=== PATIENT | female | born 1950 | race Caucasian/White ===

== ENCOUNTER 2017-05-31 10:15 | Outpatient (CLI) | payer MEDICARE, BC ==
--- NOTE | 2017-06-03 12:30 | DEXA Report ---
DEXA SCAN: 05/31/2017 CLINICAL INDICATION: Postmenopausal. TECHNIQUE: Dual energy x-ray absorptiometry (DXA) was performed on a [employer] system. Regions measured are the AP spine, femoral neck, and, if needed, forearm. COMPARISON: None. In accordance with the International Society for Clinical Densitometry (ISCD) guidelines, data from previous exams may be reanalyzed using current recommendations and techniques. This is done to allow a more accurate basis for comparison with the current study. FINDINGS: The data for the lumbar spine is as follows: REGION BMD (g/cm/cm) T-SCORE Z-SCORE L1 0.951 -1.5 0.0 L2 1.168 -0.3 1.2 L3 1.433 1.9 3.4 L4 1.299 0.8 2.3 TOTAL 1.226 0.4 1.9 NOTE: All evaluable vertebrae are used for classification. The data for the hip is as follows: REGION BMD (g/cm/cm) T-SCORE Z-SCORE Neck 0.983 -0.4 1.1 TOTAL 1.041 0.3 1.5 NOTE: The femoral neck or total proximal femur, whichever is lowest, is used for classification. IMPRESSION: THE WHO CLASSIFICATION BASED ON THE INTERNATIONAL REFERENCE STANDARD IS NORMAL THE FRACTURE RISK IS NOT INCREASED. RECOMMENDATION: Patients with diagnosis of osteoporosis or osteopenia should have regular bone mineral density assessment. For those eligible for Medicare, routine testing is allowed once every 2 years. Testing frequency can be increased for patients who have rapidly progressing disease or for those who are receiving medical therapy to restore bone mass. COMMENT: World Health Organization (WHO) definitions for osteoporosis and osteopenia: NORMAL BMD: T-score at 1.0 or higher, fracture risk is low. OSTEOPENIA BMD: T-score between 1.0 and -2.5, fracture risk is increased. OSTEOPOROSIS BMD: T-score at 2.5 or lower, fracture risk high. National Osteoporosis Foundation recommends 1. Obtain adequate dietary calcium (at least 1200 mg per day) and vitamin D (400 -800 international units per day). 2. Participate, as appropriate, in regular weightbearing and muscle- strengthening exercise. 3. Avoid tobacco use and reduce alcohol and caffeine intake. 4. For more detailed information see the website at www.NOF.org. TD: 05/31/2017 16:54 JAME
== END 2017-05-31 10:16 | disposition home or self-care (01) ==
LOC: DI 10:15
PROVIDERS: ATTEND Registered Nurse
DX: Z78.0 Asymptomatic menopausal state (principal)
CPT/HCPCS: 77080

== ENCOUNTER 2017-05-31 10:16 | Outpatient (CLI) | payer MEDICARE, BC ==
--- NOTE | 2017-06-01 20:01 | Mammography Report ---
DATE OF SERVICE: 05/31/2017 DIGITAL SCREENING MAMMOGRAM: 05/31/2017 CLINICAL INDICATION: A 67-year-old with history of late childbearing for screening. COMPARISON: 10/2014, 12/2011, 09/2009, 08/2008. TECHNIQUE: Routine CC and MLO projections were obtained of the breasts. The breasts again demonstrate scattered fibroglandular densities bilaterally. Punctate, typically benign calcifications are present. Intramammary lymph node in the left upper outer quadrant is stable. No suspicious masses, clustered microcalcifications, or regions of architectural distortion are identified. IMPRESSION: Benign findings. RECOMMENDATIONS: Routine annual screening unless otherwise clinically indicated. BIRADS category 2 benign findings. STANDARD QUALIFYING STATEMENTS 1. This examination was reviewed with the aid of Computed-Aided Detection (CAD). 2. A negative or benign imaging report should not delay biopsy if clinically suspicious findings are present. Consider surgical consultation if warranted. More than 5% of cancers are not identified by imaging. 3. Dense breasts may obscure an underlying neoplasm. TD: 06/01/2017 21:01
== END 2017-05-31 10:17 | disposition home or self-care (01) ==
LOC: DI 10:16
PROVIDERS: ATTEND Registered Nurse
DX: Z12.31 Encounter for screening mammogram for malignant neoplasm of breast (principal)
CPT/HCPCS: 77067

== ENCOUNTER 2019-02-02 09:36 | Outpatient (CLI) | payer MEDICARE, BC ==
--- NOTE | 2019-02-02 10:19 | XRAY Report ---
Reason: SWELLING OF KNEE JOINT Procedure Date: 02/02/2019 Accession Number: [id number] / [id number] Procedure: XRS - Knee 3 View LT CPT Code: FULL RESULT: EXAM: LEFT KNEE RADIOGRAPHY EXAM DATE: 02/02/2019 09:52 AM. CLINICAL HISTORY: SWELLING OF KNEE JOINT. COMPARISON: None. TECHNIQUE: 3 views. FINDINGS: Bones: Osteopenia. Small exostosis arising from base of medial femoral condyle. No definite fracture or other bone lesion. Joints: Mild 3 compartment joint space narrowing with marginal lipping. No effusion. Soft Tissues: Generalized soft tissue swelling. IMPRESSION: 1. Soft tissue swelling. 2. Mild degenerative joint disease. RADIA
== END 2019-02-02 09:37 | disposition home or self-care (01) ==
LOC: DI.S 09:36
PROVIDERS: ATTEND Nurse Practitioner Family
DX: M17.12 Unilateral primary osteoarthritis, left knee (principal); R22.42 Localized swelling, mass and lump, left lower limb

== ENCOUNTER 2019-04-10 09:14 | Outpatient (CLI) | payer MEDICARE, BC ==
--- NOTE | 2019-04-10 14:08 | Mammography Report ---
Reason: ROUTINE MAMMO Procedure Date: 04/10/2019 Accession Number: [id number] / [id number] Procedure: MGS - Screening Mammo Dig Bilat CPT Code: Final Report FULL RESULT: EXAM: Screening Mammo Dig Bilat DATE: 04/10/2019 9:33 AM CLINICAL HISTORY: The patient is an asymptomatic 69-year-old female. Second degree family history of breast cancer. TECHNIQUE: (B) - Bilateral CC and MLO views were obtained. COMPARISON: 05/31/2017, 11/01/2014 and 12/18/2011 PARENCHYMAL PATTERN: (A) - The breasts demonstrate scattered fibroglandular densities bilaterally. FINDINGS: There are no suspicious masses, calcifications, or areas of distortion. IMPRESSION: Negative examination. BI-RADS category 1. RECOMMENDATION: (ANNUAL) - Recommend routine annual screening mammography. BI-RADS CATEGORY: (1) - Negative. STANDARD QUALIFYING STATEMENTS: 1. This examination was reviewed with the aid of Computer-Aided Detection (CAD). 2. A negative or benign imaging report should not preclude biopsy if clinically suspicious findings are present. 3. Dense breasts may obscure an underlying neoplasm.
== END 2019-04-10 09:15 | disposition home or self-care (01) ==
LOC: DI.S 09:14
PROVIDERS: ATTEND Registered Nurse
DX: Z12.31 Encounter for screening mammogram for malignant neoplasm of breast (principal); Z80.3 Family history of malignant neoplasm of breast
CPT/HCPCS: 77067

== ENCOUNTER 2019-06-01 11:05 | Outpatient (CLI) | payer MEDICARE, BC | END 2019-06-01 11:06 | disposition home or self-care (01) | LOC: RT 11:05 | PROVIDERS: ATTEND Registered Nurse | DX: T88.7XXS Unspecified adverse effect of drug or medicament, sequela (principal) | CPT/HCPCS: 93005 ==

== ENCOUNTER 2021-04-27 10:36 | Emergency (ER) | payer MEDICARE, BC ==
--- NOTE | 2021-04-27 12:03 | ED Physician Documentation ---
PD HPI LOWER EXT INJURY - Stated complaint Stated Complaint: RIGHT HIP PX - Chief complaint Chief Complaint: General - History obtained from History obtained from: Patient - History of Present Illness PD HPI LOW EXT INJURY LOCATION: Right, Hip Type of injury: Fall (slipped and fell to right hip with persistent pain on ROM and walking. Pain is mainly in gluteal and SI area of pelvis and not really hip joint per se, but some pain there as well. Good ROM of the hip without weight.) Where injury occurred: Home Timing - onset: How many days ago (2) Timing - duration: Days (2) Timing - details: Abrupt onset, Still present Worsened by: Moving, Other (weight bearing mainly). No: Palpating Associated symptoms: Swelling (lateral gluteal area some swelling). No: Weakness, Numbness Similar symptoms before: Has not had sx before Review of Systems Constitutional: denies: Fever, Chills Nose: denies: Rhinorrhea / runny nose, Congestion Throat: denies: Sore throat Cardiac: denies: Chest pain / pressure Respiratory: denies: Cough GI: denies: Abdominal Pain Neurologic: denies: Focal weakness, Numbness, Head injury, LOC PD PAST MEDICAL HISTORY - Past Medical History Cardiovascular: Hypertension, High cholesterol, Other Respiratory: None Endocrine/Autoimmune: Type 2 diabetes GI: GERD : None HEENT: None Psych: Anxiety, Claustrophobia Musculoskeletal: Osteoarthritis Derm: None - Present Medications Home Medications: Ambulatory Orders Medication Instructions Recorded Confirmed Cholecalciferol (Vitamin D3) [D3 2,000 mg ORAL DAILY 04/17/13 04/17/13 Dots] Glimepiride [Amaryl] 1 mg PO DAILY 04/17/13 04/17/13 Glucosamine Sulfate Dipot Chlr 1,000 mg ORAL DAILY 04/17/13 04/17/13 [Glucosamine] Lisinopril/Hydrochlorothiazide 1 each PO DAILY 04/17/13 04/17/13 [Lisinopril-Hctz 20-12.5 mg Tab] Metformin HCl [Glucophage Xr] 500 mg PO QID 04/17/13 04/17/13 Multivitamin [Multi-Vitamin Daily] 1 each PO DAILY 04/17/13 04/17/13 Omeprazole [PriLOSEC] 20 mg ORAL DAILY 04/17/13 04/17/13 Simvastatin [Zocor] 40 mg PO QPM 04/17/13 04/17/13 buPROPion [Wellbutrin Xl] 150 mg PO DAILY 04/17/13 04/17/13 oxyCODONE [Roxicodone] 5 mg PO Q4H PRN #15 tablet 04/27/21 - Allergies Allergies/Adverse Reactions: Allergies Allergy/AdvReac Type Severity Reaction Status Date / Time No Known Drug Allergies Allergy Verified 04/27/21 11:00 PD ED PE NORMAL - Vitals Vital signs reviewed: Yes - General General: Alert and oriented X 3, Well developed/nourished, Other (appears uncomfortable due to lateral/posterior hip pain. ) - HEENT HEENT: Atraumatic - Neck Neck: Supple, no meningeal sign, No bony TTP - Respiratory Respiratory: Other (no chestwall tenderness) - Abdomen Abdomen: Soft, Non tender - Back Back: No spinal TTP - Derm Derm: Normal color, Warm and dry - Extremities Extremities: Other (right hip with tenderness and some soft tissue swelling lat eral gluteal area. Tender in lower SI area as well, some at ramus. The hip socket anteriorly without tenderness. No pain with impaction and feels better with distraction. Rotation without pain. ) - Neuro Neuro: Alert and oriented X 3, No motor deficit, No sensory deficit Results - Vitals Vitals: Oxygen O2 Source Room air - Rads (name of study) right hip Radiology: Prelim report reviewed (hip okay. concern for inferior ramus fracture.), See rad report pelvic CT Radiology: Prelim report reviewed (no fracture; specifically no obturator ring fracture. There is mild joint effusion.), See rad report PD MEDICAL DECISION MAKING - ED course Complexity details: reviewed results, considered differential (pain seems more concerning for pelvic/ramus injury, with some element of right joint pain. Feels better with distraction on exam. Impaction without pain. Can be inflammation in joint. CT supports synovitis traumatic. No fracture seen on CT. ), d/w patient Departure - Departure Disposition: 01 Home, Self Care Clinical Impression: Right hip pain, Traumatic synovitis Accidental fall Qualifiers: Encounter type: initial encounter Qualified Code(s): W19.XXXA - Unspecified fall, initial encounter Condition: Stable Record reviewed to determine appropriate education?: Yes Follow-Up: Breanna Olson ARNP [Primary Care Provider] - Prescriptions: oxyCODONE [Roxicodone] 5 mg PO Q4H PRN #15 tablet PRN Reason: Pain Comments: Continue usual medications. Increase your naproxen from 2 tablets in the morning to now twice daily for the next week or so. To that add Tylenol 3 or 4 times a day regularly for pain. Add oxycodone if needed for worse pain in the short-term. No fractures were seen on your scan or x-ray. There was a little bit of fluid in the right hip joint consistent with a inflammation and presumed arthritis flareup. Recheck if not improving well over the next several days to week. I transmitted your prescriptions to [facility] in [place]. I am prescribing a short course of narcotic pain medication for you. These are potentially dangerous and addictive medications that should be used carefully. These medications may constipate you. Take an ynwx-tnf-fvrphiu stool softener such as docusate twice daily with plenty of water while taking these medications. If you go 24 hours without a bowel movement, take rhds-wsj-jdtlnry MiraLAX, per package instructions. Do not drink or drive while taking these medications. If you received narcotic or sedating medications while in the emergency department do not drive for 24 hours. Store this medication in a safe, secure place and out of reach of children. It is a violation of federal law to give or sell this medication to another person or to use in a manner other than prescribed. The ED will not refill narcotic prescriptions, including prescriptions lost or stolen. You can dispose of unwanted medications at the [facility]'s office or at several pharmacies such as [facility]. Discharge Date/Time: 04/27/21 15:11
[2021-04-27] MEDS ORDERED: HYDROmorphone 1 MG/ML CARPUJECT IM STA (12:30)
[2021-04-27] MEDS ORDERED: KETOROLAC 30 MG/ML VIAL IM STA (12:30)
--- NOTE | 2021-04-27 12:33 | XRAY Report ---
PROCEDURE: Hip w/Pelvis 2-3V RT INDICATIONS: hip inj TECHNIQUE: AP pelvis with lateral view(s) of the right hip(s). COMPARISON: None. FINDINGS: Bones: No fractures or dislocations. Mild angulation of the right inferior pubic ramus. No suspiciou s bony lesions. Soft tissues: The visualized bowel gas pattern is normal. No suspicious soft tissue calcifications. IMPRESSION: Findings suggestive of a right inferior pubic ramus fracture. Reviewed by: Aarti Figueroa MD on 04/27/2021 11:32 AM [facility] Approved by: Aarti Figueroa MD on 04/27/2021 11:32 AM [facility] Station ID: [id number]
--- NOTE | 2021-04-27 13:41 | CT Report ---
PROCEDURE: PELVIS WO INDICATIONS: fall with right gluteal/hip pain TECHNIQUE: Noncontrast 3 mm axial sections acquired through the bony pelvis, with coronal and sagittal reformatt ing. For radiation dose reduction, the following was used: automated exposure control, adjustment of mA and/or kV according to patient size. COMPARISON: Plain films dated 04/27/2021 FINDINGS: Image quality: Excellent. Bones: No fracture nor osseous lesion. Specifically, no evidence of right hip fracture or nor obtura tor ring fracture. Soft tissues: Small right hip joint effusion. Visualized bowel loops are grossly unremarkable. No ad enopathy. No free fluid. IMPRESSION: 1. No fracture. 2. Right hip joint effusion, which could indicate infection or inflammation. Reviewed by: Aarti Figueroa MD on 04/27/2021 12:40 PM [facility] Approved by: Aarti Figueroa MD on 04/27/2021 12:40 PM [facility] Station ID: [id number]
[2021-04-27] MEDS ORDERED: oxyCODONE 5 MG TABLET PO STA (14:45)
[2021-04-27 15:11] VITALS: BP 113/72
== END 2021-04-27 15:11 | disposition home or self-care (01) ==
LOC: ED 10:36
DX: M65.9 Synovitis and tenosynovitis, unspecified (principal); S73.101A Unspecified sprain of right hip, initial encounter; W01.0XXA Fall on same level from slipping, tripping and stumbling without subsequent striking against object, initial encounter
CPT/HCPCS: 72192; 73502; 96372; 99284; J1170

== ENCOUNTER 2021-05-07 09:54 | Outpatient (CLI) | payer MEDICARE, BC ==
--- NOTE | 2021-05-08 10:30 | Mammography Report ---
BILATERAL DIGITAL SCREENING MAMMOGRAM 3D/2D: 05/07/2021 CLINICAL: Routine screening. Family history of breast cancer. Comparison is made to exam dated: 05/31/2017 mammogram - [facility]. The tissue of both breasts is predominantly fatty. No significant masses, calcifications, or other findings are seen in either breast. There has been no significant interval change. IMPRESSION: NEGATIVE There is no mammographic evidence of malignancy. A 1 year screening mammogram is recommended. This exam was interpreted at Station ID: [id number]. NOTE: For mammograms, a report in lay terms will be sent to the patient. Approximately 15% of breast malignancies will not be visualized mammographically. In the management of a palpable breast mass, a negative mammogram must not discourage biopsy of a clinically suspicious lesion. Electronically Signed By: Mitesh Ahmadi M.D., jr/millicent:05/07/2021 12:58:22 ACR BI-RADS Category 1: Negative 3341F PARENCHYMAL PATTERN: (F) - The breast(s) demonstrate(s) diffuse fatty replacement. BI-RADS CATEGORY: (1) - 1 RECOMMENDATION: (ANNUAL) - Recommend routine annual screening mammography. [id number] 1 year screening LATERALITY: (B)
== END 2021-05-07 09:55 | disposition home or self-care (01) ==
LOC: DI.S 09:54
PROVIDERS: ATTEND Registered Nurse
DX: Z12.31 Encounter for screening mammogram for malignant neoplasm of breast (principal); Z80.3 Family history of malignant neoplasm of breast

== ENCOUNTER 2021-05-07 09:57 | Outpatient (CLI) | payer MEDICARE, BC ==
--- NOTE | 2021-05-07 10:59 | XRAY Report ---
PROCEDURE: Hips 2V BILAT INDICATIONS: RIGHT SIDE PAIN TECHNIQUE: AP view of the pelvis. Bilateral frog-leg views of the hips were acquired. COMPARISON: April 27, 2021 FINDINGS: BONES/JOINT: No acute, displaced fracture or dislocation. Hypoplasia of the right pelvis/hip. The sacroiliac joints are patent. SOFT TISSUES: No focal abnormality. IMPRESSION: 1.No acute osseous abnormality. Reviewed by: Yunior Lopez MD on 05/07/2021 10:58 AM [facility] Approved by: Yunior Lopez MD on 05/07/2021 10:58 AM [facility] Station ID: [id number]
--- NOTE | 2021-05-07 13:46 | XRAY Report ---
PROCEDURE: Lumbar Spine 2 View INDICATIONS: RIGHT HIP PAIN TECHNIQUE: 3 views of the lumbar spine were acquired. COMPARISON: None. FINDINGS: L-SPINE: No acute displaced fracture. Levocurvature with bridging osteophyte at L3-4. The vertebral b halley heights are maintained. Moderate disc height loss at L3-4 and L5-S1 with sclerosis of the endpla canelo. The sacroiliac joints appear patent. SOFT TISSUES: No focal abnormality. IMPRESSION: 1.No acute osseous abnormality of the lumbar spine. Reviewed by: Yunior Lopez MD on 05/07/2021 1:45 PM [facility] Approved by: Yunior Lopez MD on 05/07/2021 1:45 PM [facility] Station ID: [id number]
== END 2021-05-07 09:58 | disposition home or self-care (01) ==
LOC: DI.S 09:57
PROVIDERS: ATTEND Nurse Practitioner Family
DX: M25.551 Pain in right hip (principal); M54.16 Radiculopathy, lumbar region

== ENCOUNTER 2023-06-11 12:38 | Outpatient (CLI) | payer MEDICARE, BC ==
--- NOTE | 2023-06-12 13:45 | DEXA Report ---
PROCEDURE: Dexa Spine and/or Hip INDICATIONS: OSTEOPENIA TECHNIQUE: Dual energy x-ray absorptiometry (DXA) was performed on a [employer] (formerly [employer]) System. Regions measur ed are the AP Spine, femoral neck, and if needed forearm. COMPARISON: 05/31/2017 FINDINGS: Lumbar Spine: Bone Mineral Density 1.295 g/cm/cm,T score 1.0. Normal, change from previous 5.6%, significant Left Femoral Neck: Bone Mineral Density 0.998 g/cm/cm, T score -0.3, normal. Left Hip: Bone Mineral Density 1.070 g/cm/cm,T score 0.5, normal. Change from previous 2.8% (T score greater or equal to -1.0: NORMAL) (T score from -1.1 to -2.4: OSTEOPENIA) (T score less than or equal to -2.5 to: OSTEOPOROSIS) Impression: By WHO criteria, this patient has normal bone density. Interval statistical increase in bone mineral density of the lumbar spine. No statistical interval ch rina in bone mineral density of the hip. Patients with diagnosis of osteoporosis or osteopenia should have regular bone mineral density assess ment. For those eligible for Medicare, routine testing is allowed once every 2 years. Testing frequ ency can be increased for patients who have rapidly progressing disease or for those who are receivin g medical therapy to restore bone mass. Reviewed by: Tosha Davis MD on 06/12/2023 1:44 PM PST Approved by: Tosha Davis MD on 06/12/2023 1:44 PM PST Station ID: [id number]
== END 2023-06-11 12:39 | disposition home or self-care (01) ==
LOC: DI 12:38
PROVIDERS: ATTEND Registered Nurse
DX: M85.861 Other specified disorders of bone density and structure, right lower leg (principal)

== ENCOUNTER 2023-06-11 12:44 | Outpatient (CLI) | payer MEDICARE, BC ==
--- NOTE | 2023-06-14 09:23 | Mammography Report ---
BILATERAL DIGITAL SCREENING MAMMOGRAM 3D/2D: 06/11/2023 CLINICAL: Routine screening. Comparison is made to exams dated: 05/07/2021 mammogram, 04/10/2019 mammogram, 05/31/2017 mammogram, and 11/01/2014 mammogram - [facility]. Both breasts are almost entirely fatty (category a/<25% glandular tissue). No significant masses, calcifications, or other findings are seen in either breast. There has been no significant interval change. IMPRESSION: NEGATIVE There is no mammographic evidence of malignancy. A 1 year screening mammogram is recommended. Based on the Tyrer Cuzick model (a risk assessment model) the patient's lifetime risk is 2.9% and her 10 year risk is 2.4%. According to the ACR, ACS, and NCCN guidelines, an annual breast MRI exam mohinder g with mammogram is recommended if the patients lifetime risk is 20% or greater. This exam was interpreted at Station ID: [id number]. NOTE: For mammograms, a report in lay terms will be sent to the patient. Approximately 15% of breast malignancies will not be visualized mammographically. In the management of a palpable breast mass, a negative mammogram must not discourage biopsy of a clinically suspicious lesion. Electronically Signed By: Win marie/millicent:06/12/2023 08:52:03 letter sent: No_Letter ACR BI-RADS Category 1: Negative 3341F PARENCHYMAL PATTERN: (F) - The breast(s) demonstrate(s) diffuse fatty replacement. BI-RADS CATEGORY: (1) - 1 Mammogram [id number] 1 year screening LATERALITY: (B)
== END 2023-06-11 12:45 | disposition home or self-care (01) ==
LOC: DI 12:44
PROVIDERS: ATTEND Registered Nurse
DX: Z12.31 Encounter for screening mammogram for malignant neoplasm of breast (principal); M85.861 Other specified disorders of bone density and structure, right lower leg

== ENCOUNTER 2023-06-11 12:44 | Outpatient (CLI) | payer MEDICARE, BC ==
--- NOTE | 2023-06-12 13:47 | XRAY Report ---
PROCEDURE: Lumbar Spine 2-3V INDICATIONS: DJD LUMBAR REGION TECHNIQUE: 2 views of the lumbar spine were acquired. COMPARISON: 05/07/2021 FINDINGS: Bones: 5 npt-iet-iozlgck vertebrae are present. Mild levoscoliosis of the lumbar spine. Prominent ri ght-sided endplate spurs at L3-4 and left-sided spurring at L4-5 and L5-S1. Straightening of the norm al lumbar lordosis. Severe disc height loss at L4-5, L5-S1, and moderate height loss at L3-4.. No ve rtebral body compression fractures. No suspicious bony lesions. Soft tissues: Overlying bowel gas pattern is normal. No suspicious soft tissue calcifications. IMPRESSION: 1. No significant changes in degeneration in the lumbar spine, most pronounced from L3 through S1. Reviewed by: Tosha Davis MD on 06/12/2023 1:46 PM PST Approved by: Tosha Davis MD on 06/12/2023 1:46 PM PST Station ID: [id number]
== END 2023-06-11 12:45 | disposition home or self-care (01) ==
LOC: DI 12:44
PROVIDERS: ATTEND Registered Nurse
DX: M51.36 Other intervertebral disc degeneration, lumbar region (principal); M51.37 Other intervertebral disc degeneration, lumbosacral region

== ENCOUNTER 2023-09-17 08:26 | Outpatient (CLI) | payer MEDICARE, BC ==
[2023-09-17 15:07] LABS: BASOPHILS % (AUTO) 0.2 %; EOSINOPHILS % (AUTO) 0.3 %; HCT - HEMATOCRIT 36.4 % (37.0-47.0); HGB - HEMOGLOBIN 11.2 g/dL (12.0-16.0); LYMPHOCYTES % (AUTO) 4.4 %; MEAN CORPUSCULAR HEMOGLOBIN 30.4 pg (27.0-31.0); MEAN CORPUSCULAR HGB CONC 30.8 g/dL (32.0-36.0); MEAN CORPUSCULAR VOLUME 98.9 fL (81.0-99.0); MEAN PLATELET VOLUME 9.5 fL (7.9-10.8); MONOCYTES % (AUTO) 3.4 %; NEUTROPHILS % (AUTO) 90.8 %; PLT - PLATELET COUNT 539 10^3/uL (130-450); RED BLOOD COUNT 3.68 10^6/uL (4.20-5.40); RED CELL DISTRIBUTION WIDTH 14.9 % (12.0-15.0); WHITE BLOOD COUNT 20.7 x10^3/uL (4.8-10.8)
[2023-09-17 15:19] LABS: ABNORMAL LYMPHS % (MANUAL) 0 %; BAND NEUTROPHILS % (MANUAL) 0 %
[2023-09-17 15:22] LABS: ALBUMIN 3.2 g/dL (3.2-5.5); ALBUMIN/GLOBULIN RATIO 0.8 (1.0-2.2); BILIRUBIN,TOTAL 0.6 mg/dL (0.2-1.0); CALCIUM 10.1 mg/dL (8.5-10.3); CREATININE 2.3 mg/dL (0.6-1.3); MAGNESIUM 1.5 mg/dL (1.7-2.3); POTASSIUM 5.4 mmol/L (3.5-4.5)
[2023-09-17 15:32] LABS: THYROID STIMULATING HORMONE 4.07 uIU/mL (0.34-5.60)
[2023-09-17 16:13] LABS: EOSINOPHILS # (MANUAL) 0.2 10^3/uL (0-0.7); LYMPHOCYTES # (MANUAL) 1.2 10^3/uL (1.5-3.5); LYMPHOCYTES % (MANUAL) 6 %; MONOCYTES # (MANUAL) 0.8 10^3/uL (0.0-1.0); NEUTROPHILS # (MANUAL) 18.4 10^3/uL (1.5-6.6)
[2023-09-17 16:14] LABS: DIFFERENTIAL COMMENT MANUAL DIFFERENTIAL; PLATELET ESTIMATE, MANUAL INCREASED (>450,000) (NORMAL); PLATELET MORPHOLOGY NORMAL APPEARANCE (NORMAL); RBC MORPHOLOGY (MULTIPLE) NORMAL APPEARANCE (NORMAL); WBC MORPHOLOGY (MULTIPLE) 1+ TOXIC GRANULATION (NORMAL)
== END 2023-09-17 08:27 | disposition home or self-care (01) ==
LOC: LAB.S 08:26
PROVIDERS: ATTEND Registered Nurse
DX: M62.81 Muscle weakness (generalized) (principal); I12.9 Hypertensive chronic kidney disease with stage 1 through stage 4 chronic kidney disease, or unspecified chronic kidney disease; N18.2 Chronic kidney disease, stage 2 (mild)
CPT/HCPCS: 36415; 80053; 82550; 82607; 82746; 83735; 84443; 85025; 85651; 86140

== ENCOUNTER 2023-09-24 20:51 | Outpatient (CLI) | payer MEDICARE, BC ==
--- NOTE | 2023-09-24 22:11 | Ultrasound Report ---
PROCEDURE: Renal (Retroperitoneal) INDICATIONS: ACUTE KIDNEY INJURY TECHNIQUE: Real-time scanning was performed of the retroperitoneal organs, with image documentation. COMPARISON: No relevant comparisons at time of dictation. FINDINGS: Kidneys: Kidneys are normal in size. Right kidney measures 11.8 cm long; left kidney measures 10.7 cm long. Right renal cortical thickness is 1.5 cm; left renal cortical thickness is 1.4 cm. Question able solid lesion in the left interpolar region measuring 2.1 x 2.1 x 1.5 cm. Increased renal cortica l echogenicity. Bilateral pelvocaliectasis. Bladder: Pre-void bladder volume is 64 mL. Post-void residual is 13 mL. Pre-void images demonstrat e no intraluminal masses or stones. On pre-void images, both ureteral jets are noted with color Dopp ler interrogation. (Of note, ureteral jets may not be detectable in up to 25% of cases due to insuff icient differences in specific gravity between ureteral and bladder urine). Miscellaneous: No free abdominal fluid. IMPRESSION: Increased renal echogenicity, most consistent with acute kidney injury provocation. Mild bilateral pelvocaliectasis. Questionable solid left renal mass measuring 2.[address] or MRI for complete dmitriy acterization (renal mass protocol). Reviewed by: Trenton Rm MD on 09/24/2023 10:09 PM PDT Approved by: Trenton Rm MD on 09/24/2023 10:09 PM PDT Station ID: [id number]
--- NOTE | 2023-09-24 22:12 | Ultrasound Report ---
PROCEDURE: Abdomen Limited INDICATIONS: ABDOMINAL PAIN TECHNIQUE: Real-time focused scanning was performed of the abdomen, with image documentation. COMPARISONS: Same day renal ultrasound. FINDINGS: Liver: Liver is normal in size and homogeneous in echotexture. Gallbladder: No gallstones, sludge, wall thickening or pericholecystic edema. Biliary ducts: Intrahepatic bile ducts are non-dilated. Extrahepatic bile duct caliber measures 6 m m. Normal is 6-7 mm or less in diameter, or 10 mm or less post-cholecystectomy. Pancreas: Visualized portions of the pancreas are sonographically normal. Right kidney: Echogenic, with mild pelvocaliectasis. IVC: Intrahepatic inferior vena cava is patent. Miscellaneous: No free abdominal fluid. IMPRESSION: Unremarkable abdominal ultrasound. Please see same day renal ultrasound for further discussion. Reviewed by: Trenton Rm MD on 09/24/2023 10:11 PM PDT Approved by: Trenton Rm MD on 09/24/2023 10:11 PM PDT Station ID: [id number]
== END 2023-09-24 20:52 | disposition home or self-care (01) ==
LOC: DI 20:51
PROVIDERS: ATTEND Registered Nurse
DX: N17.9 Acute kidney failure, unspecified (principal); R10.9 Unspecified abdominal pain; N28.89 Other specified disorders of kidney and ureter

== ENCOUNTER 2023-11-10 13:48 | Outpatient (CLI) | payer MEDICARE, BC | END 2023-11-10 13:49 | disposition home or self-care (01) | LOC: LAB.S 13:48 | PROVIDERS: ATTEND Registered Nurse | DX: E83.52 Hypercalcemia (principal) | CPT/HCPCS: 36415; 81599; 82784; 83615; 84155; 84165; 86334 ==

== ENCOUNTER 2023-11-15 12:36 | Outpatient (CLI) | payer MEDICARE, BC | END 2023-11-15 12:37 | disposition home or self-care (01) | LOC: LAB.S 12:36 | PROVIDERS: ATTEND Registered Nurse | DX: E83.52 Hypercalcemia (principal) | CPT/HCPCS: 81599 ==

== ENCOUNTER 2023-12-10 09:21 | Outpatient (CLI) | payer MEDICARE, BC ==
--- NOTE | 2023-12-15 11:07 | CT Report ---
PROCEDURE: Lumbar Spine WO INDICATIONS: LOW BACK PAIN TECHNIQUE: Helical axial CT of the lumbar spine was obtained without contrast and reformatted in mul tiple planes. Radiation dose reduction was achieved utilizing automated exposure control or adjustmen t of mA and/or kV according to patient size. COMPARISON: None. FINDINGS: Bones: Convex left lumbar scoliosis present.. No acute vertebral body compression fractures. No katherin picious lytic or blastic bony lesions. No pars defects. Sclerotic endplate changes noted Soft tissues: No retroperitoneal masses or hematomas. Visualized aorta is normal in caliber. T12-L1: Mild arthropathy. No central stenosis. No foraminal stenosis. L1-L2: No central or foraminal stenosis L2-L3: Disc bulge. Arthropathy. Mild central stenosis. No foraminal stenosis. L3-L4: Mild disc bulge, arthropathy and ligamentum flavum laxity. Moderate central stenosis. Modera te right and moderate left foraminal stenosis. L4-L5: Disc bulge, arthropathy and ligamentum flavum laxity. Moderate central stenosis. Severe left and moderate right foraminal stenosis L5-S1: Disc bulge and arthropathy. No central stenosis. Severe left and moderate right foraminal st enosis IMPRESSION: Degenerative disc disease, arthropathy and scoliosis results in varying degrees of central and forami nal stenosis including moderate central stenosis at L3-4 and L4-5 Reviewed by: Ramses Nguyen MD on 12/15/2023 10:05 AM [facility] Approved by: Ramses Nguyen MD on 12/15/2023 10:05 AM [facility] Station ID: [id number]
== END 2023-12-10 09:22 | disposition home or self-care (01) ==
LOC: DI 09:21
PROVIDERS: ATTEND Registered Nurse
DX: M47.816 Spondylosis without myelopathy or radiculopathy, lumbar region (principal); M51.36 Other intervertebral disc degeneration, lumbar region; M48.061 Spinal stenosis, lumbar region without neurogenic claudication; M47.817 Spondylosis without myelopathy or radiculopathy, lumbosacral region; M51.37 Other intervertebral disc degeneration, lumbosacral region; M48.07 Spinal stenosis, lumbosacral region